=== PATIENT | male | born 1950 | race Caucasian/White ===

== ENCOUNTER 2020-06-10 10:14 | Outpatient (CLI) | payer MEDICARE, OTHER ==
[2020-06-11 13:12] LABS: SARS-CoV-2 MS2 Positive; SARS-CoV-2 N Gene Negative; SARS-CoV-2 S Gene Negative; SARS-CoV-2 by NAA Not Detected (NotDetected); SARS-CoV-2 orf1ab Negative
== END 2020-06-10 10:15 | disposition home or self-care (01) ==
LOC: LABBT 10:14
DX: Z11.9 Encounter for screening for infectious and parasitic diseases, unspecified (principal); Z20.828 Contact with and (suspected) exposure to other viral communicable diseases
CPT/HCPCS: 87635; U0003

== ENCOUNTER 2020-06-13 10:57 | Day surgery (SDC) | payer MEDICARE ==
[2020-06-11 13:34] VITALS: BMI 35.9
[~2020-06-13 10:57] MED LIST: Lidocaine 1% PF 5 ML VIAL ONE; PROPOFOL 200 MG/20 ML VIAL ONE
--- NOTE | 2020-06-13 13:24 | MRI ---
MRI lumbar spine noncontrast: HISTORY: Radiculopathy. Bilateral buttock pain radiating down the right leg x2-3 months. COMPARISON: None FINDINGS: Appropriate T1 marrow signal intensity of the lumbar vertebra. Lumbar spine vertebral body height is maintained. No fracture. No significant STIR hyperintensity to suggest vertebral body edema. There is edema involving the left and right pedicle at L4 and L5 suggesting edema likely from mechanical st resses. There is associated bilateral facet hypertrophy at L4-L5 with adjacent edema and fluid suggesting possibly inflammatory arthropathy. There is appropriate signal intensity of the visualized paraspinal muscles and solid organs. Conus me dullaris terminates at the superior endplate of L1. T12-L1:Adequate disc hydration. No posterior disc abnormality. No significant central canal stenosis or significant neural foraminal narrowing. L1-L2:Adequate disc hydration. No posterior disc abnormality. No significant central canal stenosis o r significant neural foraminal foraminal narrowing. L2-L3:Adequate disc hydration. No significant posterior disc abnormality. No significant central brigette l stenosis. Right neural foramen is patent. Mild left neural foraminal narrowing. L3-L4:Disc desiccation without significant loss of disc space height. Broad-based disc bulge, ligamen bindu flavum thickening and facet hypertrophy result in mild central canal stenosis. Mild bilateral neural foraminal narrowing. L4-L5:Disc desiccation without significant loss of disc space height. 5 mm of anterolisthesis of L4 u tasneem L5. Broad-based disc bulge, ligamentum flavum thickening and facet hypertrophy result in severe central canal stenosis. Moderate to severe bilateral neural foraminal narrowing. L5-S1:Disc desiccation without significant loss of disc space height. There is a central disc herniat ion with associated annular fissure. Disc herniation is superimposed upon a broad based disc bulge. Narrowing of the left and right subarticular zone with partial obscuration of bilateral traversing S1 nerve roots. Moderate bilateral neural foraminal narrowing. There is facet hypertrophy. IMPRESSION: Degenerative changes of the lumbar spine as described above. Transcribed Date/Time: 06/13/2020 2:41 PM
[2020-06-13] MEDS ORDERED: Fentanyl 100 MCG/2 ML VIAL ONE (13:32)
== END 2020-06-13 14:50 | disposition home or self-care (01) ==
LOC: SDC/OP 10:57
PROVIDERS: ATTEND Family Medicine
DX: M43.16 Spondylolisthesis, lumbar region (principal); M54.16 Radiculopathy, lumbar region; M48.061 Spinal stenosis, lumbar region without neurogenic claudication; M51.27 Other intervertebral disc displacement, lumbosacral region; Z79.899 Other long term (current) drug therapy
CPT/HCPCS: 72148; J2704; J3010

== ENCOUNTER 2020-10-13 08:58 | Outpatient (CLI) | payer MEDICARE ==
--- NOTE | 2020-10-13 09:12 | RAD ---
EXAM: Chest 2 views: HISTORY: Dyspnea COMPARISON: 11/03/2018 FINDINGS: There is a normal-sized cardiomediastinal silhouette. Increased interstitial lung markings are prese nt. There are questionable superimposed infiltrates bilateral lower lobes. No acute osseous abnormality. IMPRESSION: Possible bilateral lower lung infiltrates
== END 2020-10-13 08:59 | disposition home or self-care (01) ==
LOC: BICRAD 08:58
PROVIDERS: ATTEND Internal Medicine Pulmonary Disease
DX: R06.00 Dyspnea, unspecified (principal)
CPT/HCPCS: 71046

== ENCOUNTER 2020-10-20 17:30 | Outpatient (CLI) | payer MEDICARE | END 2020-10-20 17:31 | disposition home or self-care (01) | LOC: SLEEPLAB 17:30 | PROVIDERS: ATTEND Family Medicine | DX: G47.33 Obstructive sleep apnea (adult) (pediatric) (principal); R53.83 Other fatigue; J44.9 Chronic obstructive pulmonary disease, unspecified; I10 Essential (primary) hypertension; G47.00 Insomnia, unspecified; R06.83 Snoring | CPT/HCPCS: 95806 ==